=== PATIENT | male | born 1935 | race Caucasian/White ===

== ENCOUNTER 2019-05-02 13:25 | Outpatient (CLI) | payer MEDICARE, BC, SELFPAY ==
[2019-05-02 14:09] LABS: Blood Urea Nitrogen 30 mg/dL (9-20); Calcium 8.8 mg/dL (8.4-10.2); Carbon Dioxide 25 mmol/L (22-30); Chloride 98 mmol/L (98-107); Estimated Glomerular Filt Rate 41; Glucose 143 mg/dL (75-110); Sodium 137 mmol/L (137-145)
== END 2019-05-02 13:26 | disposition home or self-care (01) ==
PROVIDERS: Anesthesiology; PCP Internal Medicine; Visit Provider Plastic Surgery
DX: I10 Essential (primary) hypertension (principal)
CPT/HCPCS: 36415; 80048

== ENCOUNTER 2019-05-08 02:07 | Day surgery (SDC) | payer MEDICARE, BC, SELFPAY ==
[2019-04-24 10:41] VITALS: BMI 38.5
--- NOTE | 2019-05-07 21:11 | HP_ITS ---
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 The lesion on the lower portion of the antihelix is approximately 14 mm in diameter. The lesion on the helix is approximately 20 x 7 mm, both are scabbed or ulcerated. We discussed these and we will plan to remove them under MAC anesthetic. He is aware that full-thickness skin graft may be necessary to close these wounds. We will also be utilizing frozen section for refinement of our diagnosis. He will remain on his clopidogrel. He has a history of multiple skin cancers removed over the years. ALLERGIES: HE HAS NO KNOWN ALLERGIES TO MEDICATIONS. MEDICATIONS: Current medication list includes: 1. Hydrochlorothiazide. 2. Atorvastatin. 3. Clopidogrel. 4. Diclofenac. 5. Dutasteride. 6. Folic acid. 7. Furosemide. 8. Gabapentin. 9. Irbesartan. 10. Lansoprazole. 11. Metoprolol. 12. Tamsulosin. OTHER SURGERIES: History of cholecystectomy in , defibrillator was placed in 2004 and heart surgery in 2008. He has had ear surgery in the 60s and foot surgery in . Regarding specialist seen, he is followed by a cardiac surgeon, a lung specialist, urologist and orthopedic surgeon. REVIEW OF SYSTEMS: Indicates he is a nonsmoker. He is a borderline diabetic with gastric reflux. He has a defibrillator, hearing loss, hypertension, and a cardiac history. FAMILY HISTORY: Noncontributory. SOCIAL HISTORY: He lives in [place]. He has worked at [employer]. PHYSICAL EXAMINATION: GENERAL: He is in a wheelchair for the office visit, but is ambulatory as needed. He is alert and cooperative and informative. VITAL SIGNS: He is 5 feet 10 inches, 268 pounds. HEENT: Reveals the 2 lesions on the right ear, one on the rim and other on the antihelix. There is no palpable adenopathy. CHEST: Clear to auscultation. HEART: Regular rate and rhythm by palpation. ABDOMEN: Soft, nontender. EXTREMITIES: Normal. His wheelchair is needed for balance rather than leg symptoms. 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 PLAN: Excision of both under frozen section controlled with MAC anesthesia, possible full-thickness skin graft. D I MT: [facility]
--- NOTE | 2019-05-08 07:17 | WPDHPUPDATE1 ---
History and Physical Update Update Date/Time: 05/08/19 07:17 History and Physical has been reviewed, including an updated exam of the patient. There are NO changes in the patient's condition. Risks, benefits, and alternatives have been discussed and questions answered. Patient agrees to proceed with procedure.
--- NOTE | 2019-05-08 09:03 | P.PNAN_ITS ---
Anes - Initial Pre Proc Eval Procedure: Operation Date: 05/08/19 11:30 Proposed Procedures p Excision Ulcerated Neoplasm Right [place] With Frozen Section, Excision Ulcerated Neoplasm Right Antihelix With Frozen Section, Possible Full Thickness Skin Graft Both Sites - Zbigniew Tello MD Date/Time: 05/08/19 09:03 Surgeon: Zbigniew Tello MD Pre Op Diagnosis: Ulcerated Neoplasm Right [place] & Anti [place] Patient Data Age: 83 Gender: M Height: 1.78 m Weight: 121.6 kg Allergies Allergy/AdvReac Type Severity Reaction Status Date / Time No Known Allergies Allergy Verified 04/24/19 10:10 Home Medications Medication Instructions Recorded Confirmed Type amiloride-hydrochlorothiazide 1 tablet PO DAILY 04/24/19 04/24/19 History atorvastatin 40 mg PO DAILY 04/24/19 04/24/19 History clopidogrel 75 mg PO DAILY 04/24/19 04/24/19 History diclofenac sodium 75 mg PO BID 04/24/19 04/24/19 History docusate sodium [Stool Softener] 100 mg PO DAILY 04/24/19 04/24/19 History dutasteride 0.5 mg PO DAILY 04/24/19 04/24/19 History folic acid 0.4 mg PO DAILY 04/24/19 04/24/19 History furosemide 40 mg PO DAILY 04/24/19 04/24/19 History gabapentin 100 mg PO TID 04/24/19 04/24/19 History irbesartan 150 mg PO DAILY 04/24/19 04/24/19 History lansoprazole 30 mg PO DAILY 04/24/19 04/24/19 History metoprolol succinate 75 mg PO DAILY 04/24/19 04/24/19 History tamsulosin 0.4 mg PO HS 04/24/19 04/24/19 History tiotropium-olodaterol [Stiolto 1 puff INHALATION BID 04/24/19 04/24/19 History Respimat] Patient hx anesthesia problems: none Family hx anesthesia problems: none PMFSH Past Medical History Medical History (Updated 05/08/19 @ 09:10 by Smith Galdamez MD) Arthritis Asthma BPH (benign prostatic hyperplasia) CAD (coronary artery disease) DR CHUNG EVERY 3-4 MONTHS.LAST SEEN MAR 2019 Cancer [facility] CHF (congestive heart failure) HTN (hypertension) Hx of myocardial infarction X 3 Hypercholesterolemia Obesity MADAN (obstructive sleep apnea) USES CPAP Surgical History Surgical History (Updated 05/08/19 @ 09:09 by Smith Galdamez MD) History of automatic internal cardiac defibrillator (AICD) 2004 Hx of coronary artery bypass graft 2009 3 VESSELS Anes - Eval Final PreProcedure Day of Procedure 05/08/19 09:03 Patient weight: obese Heart: regular rate and rhythm Lungs: clear to auscultation and normal air movement Airway: Mallampati scale class II Neurological: alert and oriented Last oral intake: >/= 8 hours ASA classification: IV Emergent: no Anesthetic plan: proceed Anesthesia type and monitoring: general GIVS Informed Consent: The patient's anesthetic plan and its attendant risks and benefits were discussed with the patient/family/POA. Questions were solicited and answers provided to the satisfaction of the patient/family/POA.
[2019-05-08 09:51] VITALS: BP 156/65; PULSE 64; RESP 20; TEMP 36.6; O2SAT 90
[2019-05-08] MEDS: LACTATED RINGERS 1,000 ML 30 ML IV CONT (10:35)
--- NOTE | 2019-05-08 11:49 | SUR.PREOP ---
per Dr Tello-yanira for patient to wear left boot to OR
--- NOTE | 2019-05-08 12:30 | SUR.OPER ---
Specimen 1 given to Marlin in Lab. Specimen 2 given to Teresita in lab.
--- NOTE | 2019-05-08 13:16 | P.OPB_ITS ---
Procedure Note - Brief Procedure Note - Brief Date of procedure: 05/08/19 Pre-op diagnosis: Ulcerated Neoplasm Right [place] & Anti [place] Post-op diagnosis: other (Ulcerated inflammed neoplasm of right antihelix. 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 1.5 cm excision of ulcerated inflammed neoplasm of right antihelix with FS and complex repair 2.0 cm. Anesthesia: MAC Surgeon: Zbigniew Tello MD Head Of Precision Targeting: Adina ZUÑIGA student Estimated blood loss (mL): 10 Drains: No Packing: No Pathology: yes (12, 3-4, 8 margins sent for permanent.) Complications: No immediate complications Condition: stable Disposition: same day
[2019-05-08] MEDS: BACITRACIN OINTMENT 15 GM TUBE 1 APPLIC TOPICAL (13:19)
[2019-05-08 13:43] VITALS: BP 128/65; PULSE 66; RESP 14
--- NOTE | 2019-05-08 14:00 | PM.PROC ---
Procedure Note - Detailed Date of procedure: 05/08/19 Pre-op diagnosis: Ulcerated Neoplasm Right [place] & Anti [place] Post-op diagnosis: other (Ulcerated mass of the right antihelix. 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 He was taken to the operating room and placed supine on the operative table. His head was elevated. He was given IV sedation. The right side of his head and neck were prepped and draped in usual fashion. Careful inspection of these areas on the ear were marked for planned excision. These areas on the helix and antihelix were infiltrated with 1% lidocaine with epinephrine. The lesion from the antihelix was carefully examined and there was a 3 mm scab that covered an opening into this mass and the surrounding tissue was somewhat pearlescent resembling a basal cell carcinoma. The area on the antihelix was a long area of roughened skin and small scabs. This entire area was marked for excision. Our incision line on this crossed a small red 3 mm granulating area on the anterior area. We name this 12:00 for our suture marking and did not take it with the initial excision. The lesion from the antihelix was taken off first as a circular ellipse down to the perichondrium the mass was taken off of the cartilage. Did not seem to involve the perichondrium over the cartilage. The suture was placed at the superior aspect and sent for frozen section. The pathologist did not reveal the presence of any malignancy. The 2nd specimen was taken off as a long ellipse along the rim of the ear. A suture was placed at the most anterior aspect in the middle of the length of this mass for 12:00 o'clock. A two tail suture was placed at the most superior aspect for the 9:00 o'clock reference. The specimen was sent to pathology. The pathologist reported that the 3-4, the 8 and 12 o'clock sites were positive for squamous cell carcinoma. Except for the 12:00 o'clock, all these areas appeared to be normal skin clinically. We undertook 3 additional skin excisions and the 12:00 o'clock was a 1 x 2 cm wedge that included cartilage anticipating a wedge type closure repair. That specimen easily encompass the entire red granulated area and was sent for permanent section. A 3 mm wide section of skin was taken from the 3-4 o'clock margin with ample extra length. Suture marked the new 3:00 o'clock margin and that was sent for permanent section. A 3 mm wide resection from the 8:00 o'clock region was also taken and the new suture marking the new 8:00 o'clock point. This specimen also was sent for permanent section Closure of the nodular resection site involved resection of cartilage of the antihelix and also undermining of skin. Closure of the rim excision required wide undermining equaling the with of the wound as well as vicryl perichondral sutures to close the wedge. 5-0 Nylon closed the skin. He was discharged with instructions on care and follow-up and a prescription for tramadol 50 mg 8. Surgeon: Zbigniew Tlelo MD
[2019-05-08 14:10] VITALS: BP 121/60; PULSE 67
[2019-05-08 14:40] VITALS: BP 147/71; PULSE 70
== END 2019-05-08 15:00 | disposition home or self-care (01) ==
PROVIDERS: PCP Internal Medicine; Visit Provider Plastic Surgery
PROC: (CPT 11646; principal; 2019-05-08 11:30)
DX: C44.222 Squamous cell carcinoma of skin of right ear and external auricular canal (principal); L98.499 Non-pressure chronic ulcer of skin of other sites with unspecified severity; I11.0 Hypertensive heart disease with heart failure; I50.9 Heart failure, unspecified; I25.10 Atherosclerotic heart disease of native coronary artery without angina pectoris; E78.00 Pure hypercholesterolemia, unspecified; J45.909 Unspecified asthma, uncomplicated; I25.2 Old myocardial infarction; G47.33 Obstructive sleep apnea (adult) (pediatric); N40.0 Benign prostatic hyperplasia without lower urinary tract symptoms; M19.90 Unspecified osteoarthritis, unspecified site; E66.01 Morbid (severe) obesity due to excess calories; Z68.41 Body mass index [BMI] 40.0-44.9, adult; Z79.02 Long term (current) use of antithrombotics/antiplatelets; Z95.810 Presence of automatic (implantable) cardiac defibrillator; Z95.1 Presence of aortocoronary bypass graft
CPT/HCPCS: 11646; 13152; 13153; 11443; 88305; 88331; 88332; A9270; J1100; J2405; J2704; J3010; J7120

== ENCOUNTER 2019-09-23 09:58 | Inpatient (IN) | payer MEDICARE, BC, SELFPAY ==
[2019-09-23] VITALS (15 sets, daily range): BP systolic 104–134; BP diastolic 52–74; PULSE 60–105; RESP 18–24; TEMP 36–36.7; O2SAT 91–100
--- NOTE | ~2019-09-23 | XR_ITS ---
EXAMINATION: XR chest port-a-cath/central INDICATION: Central line placement TECHNIQUE: Portable AP chest at 1154 hours COMPARISON: None available FINDINGS: A right internal jugular central venous catheter ends with its tip at the distal superior v yeni cava. There are diffuse interstitial and airspace opacities of the lungs. Cardiomegaly is noted. No pleural effusion or pneumothorax is identified. A dual-lead cardiac pacemaker of the left chest wa ll ends with leads in expected locations. Median sternotomy wires and mediastinal surgical clips are seen, likely from prior coronary artery bypass grafting. IMPRESSION: 1. Right internal jugular central venous catheter ending in the distal superior vena cava. No pneumot horax. 2. Diffuse lung disease, consistent with pneumonia and/or pulmonary edema and/or acute respiratory di stress syndrome (ARDS). Reviewed, dictated and finalized at location A. IMPRESSION: 1. Right internal jugular central venous catheter ending in the distal superior vena cava. No pneumothorax. 2. Diffuse lung disease, consistent with pneumonia and/or pulmonary edema and/o r acute respiratory distress syndrome (ARDS).
--- NOTE | ~2019-09-23 | XR_ITS ---
EXAMINATION: XR hand RT min 3V EXAM DATE: 09/23/2019 10:55 INDICATION: Initial encounter following injury, with pain of the right hand. TECHNIQUE: Right hand frontal, lateral and oblique projections obtained and reviewed. There is no pr ior study for comparison. FINDINGS: Right metacarpal bones are unremarkable. 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 Otherwise mild to moderate scattered polyarticular osteoarthritis. 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 There are no acute fractures or dislocations identifi ed. There is no subcutaneous gas. There are no radiopaque foreign bodies. IMPRESSION: 1. XR hand RT min 3V exam without acute osseous findings. 2. Polyarticular osteoarthritis. Reviewed, dictated and finalized at location A.
--- NOTE | 2019-09-23 10:24 | PC.NURSE ---
PT HAS OBVIOUS RED BLOOD ON RECTUM, PA JORDAN AT BEDSIDE TO VISIBLY ASSESS.
--- NOTE | 2019-09-23 10:30 | ED.GIBLEED ---
HPI - GI Bleed General Chief complaint: GI Bleed <Osbaldo Vanegas PA-C - Last Filed: 09/23/19 19:38> Stated complaint: GI Bleed <Osbaldo Vanegas PA-C - Last Filed: 09/23/19 19:38> Time Seen by Provider: 09/23/19 10:00 <Osbaldo Vanegas PA-C - Last Filed: 09/23/19 19:38> Source: patient and family <URSULA Tellez Last Filed: 09/23/19 19:38> Mode of arrival: EMS <URSULA Tellez Last Filed: 09/23/19 19:38> Limitations: no limitations <URSULA Tellez Last Filed: 09/23/19 19:38> History of Present Illness HPI Narrative: Patient with history of past [place], CHF, hypertension, MADAN, cancer, BPH obesity, hyperlipidemia, arthritis, asthma, oxygen need, unstable left ankle, history of presents with chief complaint of GI bleeding that began yesterday. Patient states that he was discharged from [facility] yesterday after being admitted on Sunday for shaking episodes. Patient also reports falling on Sunday and hitting his head and right hand. Patient states on Sunday after presenting to [facility] he did have CT imaging of his head, but did not have imaging of his right hand. Patient states that he was given 3 aspirins in addition to his Plavix prior to discharge from [facility] yesterday and he believes that is the cause of his rectal bleeding. Patient states that the blood is bright red and when he woke up this morning it was all over the bed. Patient denies weakness from his baseline or shortness of breath greater than his baseline. He denies any chest pain, dizziness, nausea, vomiting. He reports having an episode of abdominal pain while sitting on the toilet yesterday but denies any acute abdominal pain at this time. Patient denies having a history of GI bleeding. Patient states the past week he has gone to the bathroom every other day instead of every day but otherwise has noted normal bowel movements and denies them being excessively hard.patient denies any vomiting, fever, cough. Patient states that he has a boot on his left leg but he cannot under any circumstances be removed due to it being unstable. Patient states that his shaking episodes are now by his primary care provider Dr. De Luna as well as his territory sales manager. <Osbaldo Vanegas PA-C - Last Filed: 09/23/19 19:38> Related Data Home medications: Home Medications Medication Instructions Recorded Confirmed atorvastatin 40 mg PO DAILY 04/24/19 09/23/19 clopidogrel 75 mg PO DAILY 04/24/19 09/23/19 diclofenac sodium 75 mg PO BID 04/24/19 09/23/19 docusate sodium [Stool Softener] 100 mg PO DAILY 04/24/19 09/23/19 dutasteride 0.5 mg PO DAILY 04/24/19 09/23/19 folic acid 0.4 mg PO DAILY 04/24/19 09/23/19 gabapentin 100 mg PO TID 04/24/19 09/23/19 irbesartan 150 mg PO DAILY 04/24/19 09/23/19 lansoprazole 30 mg PO DAILY 04/24/19 09/23/19 metoprolol succinate 25 mg PO DAILY 04/24/19 09/23/19 tamsulosin 0.4 mg PO HS 04/24/19 09/23/19 furosemide 80 mg PO DAILY 09/23/19 09/23/19 <Osbaldo Vanegas PA-C - Last Filed: 09/23/19 19:38> Allergies/Adverse reactions: Allergies Allergy/AdvReac Type Severity Reaction Status Date / Time No Known Allergies Allergy Verified 09/23/19 10:09 <Osbaldo Vanegas PA-C - Last Filed: 09/23/19 19:38> Review of Systems Review of Systems: Narrative: CONSTITUTIONAL: Denies fever, chills, or sweats. EYES: Denies visual changes, redness, or discharge. ENT: Denies rhinorrhea, congestion, sore throat, or otalgia. CARDIOVASCULAR: Denies chest pain, palpitations, or edema. RESPIRATORY: Denies cough or acute dyspnea. GASTROINTESTINAL: Reports rectal bleeding denies acute abdominal pain, nausea, vomiting, or diarrhea. GENITOURINARY: Denies dysuria or hematuria. SKIN: Denies rash or itching. MUSCULOSKELETAL: Reports tenderness to the base of the right fifth digit denies acute back pain or myalgia. NEUROLOGIC: Denies headache, numbness, dizziness, or weakness. PSYCHIATRIC: Denies anxie
[2019-09-23 10:55] LABS: Basophils Percent Auto 0.2 % (0.2-1.2); Eosinophils Percent Auto 0.2 % (0-4.4); Hematocrit 24.7 % (42.0-52.0); Hemoglobin 7.7 g/dL (14.0-18.0); Immature Granulocyte Absolute 0.05 K/mm3 (0.00-0.031); Immature Granulocyte Percent A 0.6 % (0-0.5); Lymphocytes Absolute Auto 0.66 K/mm3 (0.9-3.2); Lymphocytes Percent Auto 7.4 % (18.3-44.2); Mean Corpuscular HGB Conc 31.2 g/dl (32-36); Mean Corpuscular Hemoglobin 32.4 pg (26-34); Mean Corpuscular Volume 103.8 fl (80-100); Monocytes Absolute Auto 0.5 K/mm3 (0.1-0.6); Monocytes Percent Auto 5.8 % (2.6-8.5); Neutrophils Absolute Auto 7.7 K/mm3 (1.3-6.7); Neutrophils Percent Auto 85.8 % (45.5-73.1); Platelet Count Result 248 k/mm3 (150-375); Red Blood Count 2.38 M/mm3 (4.6-6.20); Red Cell Distribution Width 14.6 % (11.5-14.5)
[2019-09-23 11:03] LABS: INR 1.3; Prothrombin Time 15.8 Seconds (11.1-14.7)
[2019-09-23 11:04] LABS: Partial Thromboplastin Time 25.6 SECONDS (22.3-36.8)
--- NOTE | 2019-09-23 11:04 | PC.NURSE ---
MEDICAL RECORDS REQUEST SENT BY [facility].
[2019-09-23 11:08] LABS: Alanine Aminotransferase 12 U/L (4-50); Albumin Level 3.2 g/dL (3.5-5.1); Alkaline Phosphatase 120 U/L (38-126); Aspartate Amino Transferase 20 U/L (17-59); Bilirubin,Total 0.9 mg/dL (0.2-1.3); Blood Urea Nitrogen 27 mg/dL (9-20); Calcium 7.9 mg/dL (8.4-10.2); Carbon Dioxide 31 mmol/L (22-30); Chloride 99 mmol/L (98-107); Estimated CRCL calculation 60 ml/min; Estimated Glomerular Filt Rate > 60; Glucose 142 mg/dL (75-110); Potassium 3.2 mmol/L (3.4-5.0); Sodium 139 mmol/L (137-145)
--- NOTE | 2019-09-23 11:10 | PC.NURSE ---
BEDSIDE REPORT GIVEN TO [facility] AT THIS TIME, SHE HAS ASSUMED PT CARE.
[2019-09-23] MEDS: PANTOPRAZOLE SODIUM IV 40 MG VIAL IV PUSH (11:23)
--- NOTE | 2019-09-23 13:02 | PC.NURSE ---
This patient, Jagjit Rivera, was admitted to [facility] Surg Room 315-01 on 09/23/2019 @ 1302. Patient/family oriented to hospital policies and general routines including ID bracelet, bed and alarms, visiting hours, pain management, procedures, bathroom and other care routines, personal items, smoking policy, room service/diet, and visiting hours. Valuables list has been completed. Information on how to activate the Rapid Response Team has been discussed. Patient/Family are encouraged to report perceived risks to care and to ask questions if they do not understand what they are told or what they should do.
--- NOTE | 2019-09-23 13:28 | WPDGICN ---
Assessment and Plan Assessment and plan (1) GI bleeding: Code(s): K92.2 - Gastrointestinal hemorrhage, unspecified Status: Acute Assessment and Plan: Patient has GI bleeding that began last evening. Described as rather large amount of melanotic admixed with blood and cloudy stools. Patient has a low hemoglobin consistent with blood loss anemia. Is difficult to know the etiology of this bleeding. It could be upper or lower in the etiology. Plan is to monitor hemoglobin closely and transfuse as necessary. GI endoscopy will be planned in the morning to include both colonoscopy an EGD. Patient will be maintained on Protonix for the possibility of peptic ulcer disease in the interim period anticoagulation with Plavix should be held until this is accomplished. (2) Squamous cell cancer of lip: Code(s): C44.02 - Squamous cell carcinoma of skin of lip Status: Acute (3) Obesity: Code(s): E66.9 - Obesity, unspecified Status: Acute (4) CAD (coronary artery disease): Code(s): I25.10 - Atherosclerotic heart disease of [place] coronary artery without angina pectoris Status: Acute (5) Hx of coronary artery bypass graft: Code(s): Z95.1 - Presence of aortocoronary bypass graft Status: Acute (6) History of automatic internal cardiac defibrillator (AICD): Code(s): Z95.810 - Presence of automatic (implantable) cardiac defibrillator Status: Acute GI Consult Note Consult date/time: 09/23/19 13:28 HPI: Jagjit Rivera is a 83 year old male seen in evaluation at the request of the ER because of gi bleeding. this patient has a history of atherosclerotic heart disease. He has a distant history of a myocardial infarction, congestive heart failure, defibrillator implanted. He has been treated for squamous cell carcinoma of the lip. Obesity. BPH. Hyperlipidemia. Arthritis. He has a poorly healing fracture of the left foot for which she always wears a boot. He was in usual state of health till yesterday when he began to pass black stools but also blood study stools admixed with stool and clots. This persisted throughout the evening. Prompting him to go to the emergency room this morning. He was found to have a low hemoglobin was admitted to the hospital. Patient denies abdominal pain. His appetite has been normal. At home he takes Plavix and aspirin on a routine basis. Patient denies any prior history of GI blood loss. He does report having had a perforated ulcer requiring surgery 5 years ago. Review of Systems Review of Systems: All systems reviewed & are unremarkable except as noted in HPI and below PMFSH Past Medical History Medical History Arthritis Asthma BPH (benign prostatic hyperplasia) CAD (coronary artery disease) DR CHUNG EVERY 3-4 MONTHS.LAST SEEN MAR 2019 Cancer [facility] CHF (congestive heart failure) HTN (hypertension) Hx of myocardial infarction X 3 Hypercholesterolemia Obesity MADAN (obstructive sleep apnea) USES CPAP Surgical History Surgical History History of automatic internal cardiac defibrillator (AICD) 2004 Hx of coronary artery bypass graft 2008 3 VESSELS Meds Home Medications and Allergies Home Medications Medication Instructions Recorded Confirmed Type atorvastatin 40 mg PO DAILY 04/24/19 04/24/19 History clopidogrel 75 mg PO DAILY 04/24/19 04/24/19 History diclofenac sodium 75 mg PO BID 04/24/19 05/08/19 History docusate sodium [Stool Softener] 100 mg PO DAILY 04/24/19 05/08/19 History dutasteride 0.5 mg PO DAILY 04/24/19 05/08/19 History folic acid 0.4 mg PO DAILY 04/24/19 05/08/19 History furosemide 40 mg PO DAILY 04/24/19 05/08/19 History gabapentin 100 mg PO TID 04/24/19 05/08/19 History irbesartan 150 mg PO DAILY 04/24/19 05/08/19 History lansoprazole 30 mg PO DAILY 04/24/19 05/08/19 History metopr
[2019-09-23] MEDS: PEG (High)/E-LYTE SOLN 4,000 ML BTL 4000 ML PO (16:11)
--- NOTE | 2019-09-23 17:20 | PM.IMHP ---
H&P: HPI History of Present Illness Chief complaint: GI Bleeding Narrative: Jagjit Rivera is a 83 year old male Who was admitted on 09/21/2019 to [facility] the patient was having a shaking episode and was unresponsive became very quickly. The patient had a slight bump in his troponins x3 at [facility] and it was felt that it was due to his acute kidney injury. Patient had no complaints of chest pain and was released to home last night. He then started to have bright red bloody stools. The stated he had at least 3 large bloody stools last night. Again today he had multiple bloody stools and in the emergency room she stated he had a bloody stools well. The patient appears to be pale. He is very weak. He has no fever or chills. No nausea vomiting. . GI has been consulted and has already seen the patient. Plan for EGD and colonoscopy for tomorrow. The patient is on Plavix and aspirin. The patient fell on Sunday and hit his head and his right hand and then Sundays when he went to [facility]. He did have CT imaging of his head but not of his right hand. The patient stated he was given [address] [facility] De Luna is his construction management instructor. Records were obtained from [facility] and are placed on the chart. H&H 7.7 and 24.7. His hemoglobin was noted to be 11.6 with hematocrit 37.3 at [facility] 2 days ago. The patient is hypoxic and is on oxygen at 2 L per nasal cannula. Patient was started on a Protonix drip. He was started on preparation for colonoscopy tomorrow. Date of service 09/23/2019 Review of Systems Review of Systems: Narrative: the patient feels very fatigued and his is answering questions for him. All systems reviewed & are unremarkable except as noted in HPI and below Constitutional: Constitutional: Reports as per HPI and Reports no additional constitutional complaints Eyes: Eyes: Reports as per HPI and Reports no additional eye complaints ENT: Reports system reviewed and no additional complaints, except as documented and Reports Normal hearing present Cardiovascular: Cardiovascular: Reports no additional cardiovascular complaints Respiratory: Respiratory: Reports no additional respiratory complaints and Reports no additional respiratory complaints Gastrointestinal: Gastrointestinal: Reports as per HPI and Reports no additional gastrointestinal complaints Musculoskeletal: Musculoskeletal: Reports no additional musculoskeletal complaints Integumentary/Breasts: Skin/Breast: Reports system reviewed and no additional complaints, except as docu and Reports as per HPI Neurologic: Reports system reviewed and no additional complaints, except as documented, Reports as per HPI and Reports Normal hearing present Psychiatric: Psychiatric: Reports no additional psychiatric complaints and Reports as per HPI Endocrine: Endocrine: Reports no additional endocrine complaints Hematologic/Lymphatic: Hematologic/Lymphatic: Reports no additional hematologic/lymphatic complaints Allergic/Immunologic: Allergic/Immunologic: Reports no additional allergic/immunologic complaints [facility] Past Medical History Medical History (Updated 09/23/19 @ 17:27 by Esperanza Patel NP) Arthritis Asthma BPH (benign prostatic hyperplasia) CAD (coronary artery disease) DR CHUNG EVERY 3-4 MONTHS.LAST SEEN MAR 2019 Cancer [facility] CHF (congestive heart failure) Chronic anemia Chronic GERD HTN (hypertension) Hx of myocardial infarction X 3 Hypercholesterolemia Obesity MADAN (obstructive sleep apnea) USES CPAP Surgical History Surgical History (Updated 09/23/19 @ 17:27 by Esperanza Patel NP) H/O mastoidectomy H/O right knee surgery History of automatic internal cardiac defibrillator (AICD) 2004 History of colon resection Hx of cholecystectomy Hx of coronary artery bypass graft 2009 3 VESSELS Family History Family History (Updated 09/23/19 @ 17:28 by Esperanaz Patel NP) Fath
--- NOTE | 2019-09-23 18:01 | WPDANESEPP ---
Anes - Eval Pre Procedure Procedure: Operation Date: 09/24/19 11:30 Proposed Procedures p Esophagogastroduodenoscopy & Colonoscopy - Bayron Gutierrez MD Date/Time: 09/23/19 18:01 Pre Op Diagnosis: GI Bleeding Patient Data Age: 83 Gender: M Height: 5 ft 10 in Weight: 130.8 kg Last Vital Signs Temp 98.1 F 09/23/19 14:00 Pulse 87 09/23/19 14:00 Resp 18 09/23/19 14:00 BP 123/53 L 09/23/19 14:00 Pulse Ox 100 09/23/19 14:00 Allergies Allergy/AdvReac Type Severity Reaction Status Date / Time No Known Allergies Allergy Verified 09/23/19 10:09 Home Medications Medication Instructions Recorded Confirmed Type atorvastatin 40 mg PO DAILY 04/24/19 09/23/19 History clopidogrel 75 mg PO DAILY 04/24/19 09/23/19 History diclofenac sodium 75 mg PO BID 04/24/19 09/23/19 History docusate sodium [Stool Softener] 100 mg PO DAILY 04/24/19 09/23/19 History dutasteride 0.5 mg PO DAILY 04/24/19 09/23/19 History folic acid 0.4 mg PO DAILY 04/24/19 09/23/19 History gabapentin 100 mg PO TID 04/24/19 09/23/19 History irbesartan 150 mg PO DAILY 04/24/19 09/23/19 History lansoprazole 30 mg PO DAILY 04/24/19 09/23/19 History metoprolol succinate 25 mg PO DAILY 04/24/19 09/23/19 History tamsulosin 0.4 mg PO HS 04/24/19 09/23/19 History furosemide 80 mg PO DAILY 09/23/19 09/23/19 History Laboratory Tests 09/23/19 09/23/19 09/23/19 10:39 10:39 10:39 WBC 9.0 K/mm3 K/mm3 (4.5-10.0) RBC 2.38 M/mm3 L M/mm3 (4.6-6.20) Hgb 7.7 g/dL L g/dL (14.0-18.0) Hct 24.7 % L % (42.0-52.0) MCV 103.8 fl H fl (80-100) MCH 32.4 pg pg (26-34) MCHC 31.2 g/dl L g/dl (32-36) RDW 14.6 % H % (11.5-14.5) Plt Count 248 k/mm3 k/mm3 (150-375) MPV 11.0 fl H fl (7.4-10.4) Immature Gran % (Auto) 0.6 % H % (0-0.5) Neut % (Auto) 85.8 % H % (45.5-73.1) Lymph % (Auto) 7.4 % L % (18.3-44.2) [place] % (Auto) 5.8 % % (2.6-8.5) Eos % (Auto) 0.2 % % (0-4.4) Baso % (Auto) 0.2 % % (0.2-1.2) Lymph # (Auto) 0.66 K/mm3 L K/mm3 (0.9-3.2) [place] # (Auto) 0.5 K/mm3 K/mm3 (0.1-0.6) Eos # (Auto) 0.0 K/mm3 K/mm3 (0-0.3) Baso # (Auto) 0.0 K/mm3 K/mm3 (0.0-0.1) Abs Immat Gran (auto) 0.05 K/mm3 H K/mm3 (0.00-0.031) Absolute Neuts (auto) 7.7 K/mm3 H K/mm3 (1.3-6.7) Absolute Nucleated RBC 0.0 K/mm3 K/mm3 (0.0-0.012) Nucleated RBC % 0.0 % % (0.0-0.2) PT 15.8 Seconds H Seconds (11.1-14.7) INR 1.3 APTT 25.6 SECONDS SECONDS (22.3-36.8) Sodium 139 mmol/L mmol/L (137-145) Potassium 3.2 mmol/L L mmol/L (3.4-5.0) Chloride 99 mmol/L mmol/L (98-107) Carbon Dioxide 31 mmol/L H mmol/L (22-30) BUN 27 mg/dL H mg/dL (9-20) Creatinine 1.10 mg/dL mg/dL (0.7-1.3) Estim Creat Clear Calc 60 ml/min ml/min Estimated GFR > 60 (59 - ) Glucose 142 mg/dL H mg/dL (75-110) Calcium 7.9 mg/dL L mg/dL (8.4-10.2) Total Bilirubin 0.9 mg/dL mg/dL (0.2-1.3) AST 20 U/L U/L (17-59) ALT 12 U/L U/L (4-50) Alkaline Phosphatase 120 U/L U/L (38-126) Total Protein 6.0 g/dL L g/dL (6.3-8.2) Albumin 3.2 g/dL L g/dL (3.5-5.1) Blood Type Antibody Screen Crossmatch 09/23/19 10:39 WBC RBC Hgb Hct MCV MCH MCHC RDW Plt Count MPV Immature Gran % (Auto) Neut % (Auto) Lymph % (Auto) [place] % (Auto) Eos % (Auto) Baso % (Auto) Lymph # (Auto) [place] # (Auto) Eos # (Auto) Baso # (Auto) Abs Immat Gran (auto) Absolute Neuts (auto) Absolute Nucleated RB
--- NOTE | 2019-09-23 19:14 | ECG_ITS ---
Measurements Intervals [place] Rate: 98 P: -3 AL: 170 QRS: -23 QRSD: 123 T: 171 QT: 361 QTc: 462 Interpretive Statements SINUS OR ECTOPIC ATRIAL RHYTHM INTRAVENTRICULAR CONDUCTION DELAY POOR R WAVE PROGRESSION, ANTERIOR LEADS INFERIOR INFARCT, AGE INDETERMINATE ST-T WAVE ABNORMALITY IN HIGH LATERAL LEADS- CONSIDER ISCHEMIA ABNORMAL ECG Electronically Signed On 09-24-2019 7:29:33 CDT by Karlo Butterfield D.O.
[2019-09-23] MEDS: GABAPENTIN 100 MG CAPSULE PO (21:13)
[2019-09-23] MEDS: TAMSULOSIN HCL 0.4 MG CAPSULE PO (21:13)
[2019-09-23 21:47] LABS: Glucose Point of Care 175 (65-105)
[2019-09-24] VITALS (26 sets, daily range): BP systolic 101–152; BP diastolic 10–98; PULSE 84–114; RESP 18–22; TEMP 35.1–36.9; O2SAT 92–100
--- NOTE | 2019-09-24 | WPDPROCEDUR ---
Procedures Central Line Placement Right IJ: Central Line Date: 09/23/19 Central Line Time: 23:00 Discussed w/ the patient/family/POA,the placement of a central venous catheter, including its clinical necessity/indication & associated potential risks, benifits and alternatives.: Yes Time Out Performed: Yes Patient Position: supine Patient placed on monitor/pulse ox: Yes Provider Prep: mask, sterile gown, sterile gloves, Max. sterile barrier precautions, cap and hand hygiene Central line prep: Povidone-Iodine 1% Local anesthesia used: lidocaine 1% Amount of anesthesia used (ml): 5 Sterile Ultrasound Technique used for placement: Yes Central line lumen inserted: triple Malaysian: 7 Length (cm): 20 Depth of Insertion (cm): 16 Post procedure: sutured in place, good blood return, all ports aspirated, flushed, capped, tegaderm, hemostatic disc and aseptic technique maintained throughout procedure Post procedure x-ray: tip of catheter in good position and no pneumothorax seen Patient tolerated procedure: well Complications: none Additional comments: Date of service was 09/23/2019 at 23:00 hrs.
--- NOTE | 2019-09-24 00:21 | PC.NURSE ---
Multiple IV access attempts unsuccessful. Esperanza MARTINEZ at bedside attempting IV access, unable to obtain.
[2019-09-24 07:08] LABS: Hematocrit 23.5 % (42.0-52.0); Hemoglobin 7.5 g/dL (14.0-18.0)
[2019-09-24 07:24] LABS: Alanine Aminotransferase 13 U/L (4-50); Albumin Level 3.3 g/dL (3.5-5.1); Alkaline Phosphatase 116 U/L (38-126); Aspartate Amino Transferase 34 U/L (17-59); Bilirubin,Total 1.1 mg/dL (0.2-1.3); Blood Urea Nitrogen 28 mg/dL (9-20); CRP 2.7 mg/dL (<1.0); Carbon Dioxide 28 mmol/L (22-30); Chloride 99 mmol/L (98-107); Estimated CRCL calculation 60 ml/min; Estimated Glomerular Filt Rate > 60; Glucose 174 mg/dL (75-110); Magnesium 1.7 mg/dL (1.6-2.3); Sodium 139 mmol/L (137-145)
[2019-09-24 08:21] LABS: Glucose Point of Care 195 (65-105)
--- NOTE | 2019-09-24 09:16 | WPDANESEPPF ---
Anes - Initial Pre Proc Eval Procedure: Operation Date: 09/24/19 11:30 Proposed Procedures p Esophagogastroduodenoscopy & Colonoscopy - Bayron Gutierrez MD Date/Time: 09/24/19 09:16 Surgeon: Wilbur Springer MD Pre Op Diagnosis: GI Bleeding Patient Data Age: 83 Gender: M Height: 1.78 m Weight: 130.8 kg Last Vital Signs Temp 36.9 C 09/24/19 06:00 Pulse 98 09/24/19 06:00 Resp 22 H 09/24/19 06:00 BP 152/87 H 09/24/19 06:00 Pulse Ox 100 09/24/19 06:00 Allergies Allergy/AdvReac Type Severity Reaction Status Date / Time No Known Allergies Allergy Verified 09/24/19 11:34 Home Medications Medication Instructions Recorded Confirmed Type atorvastatin 40 mg PO DAILY 04/24/19 09/23/19 History clopidogrel 75 mg PO DAILY 04/24/19 09/23/19 History diclofenac sodium 75 mg PO BID 04/24/19 09/23/19 History docusate sodium [Stool Softener] 100 mg PO DAILY 04/24/19 09/23/19 History dutasteride 0.5 mg PO DAILY 04/24/19 09/23/19 History folic acid 0.4 mg PO DAILY 04/24/19 09/23/19 History gabapentin 100 mg PO TID 04/24/19 09/23/19 History irbesartan 150 mg PO DAILY 04/24/19 09/23/19 History lansoprazole 30 mg PO DAILY 04/24/19 09/23/19 History metoprolol succinate 25 mg PO DAILY 04/24/19 09/23/19 History tamsulosin 0.4 mg PO HS 04/24/19 09/23/19 History furosemide 80 mg PO DAILY 09/23/19 09/23/19 History Laboratory Tests 09/23/19 09/23/19 09/23/19 10:39 10:39 10:39 WBC 9.0 K/mm3 K/mm3 (4.5-10.0) RBC 2.38 M/mm3 L M/mm3 (4.6-6.20) Hgb 7.7 g/dL L g/dL (14.0-18.0) Hct 24.7 % L % (42.0-52.0) MCV 103.8 fl H fl (80-100) MCH 32.4 pg pg (26-34) MCHC 31.2 g/dl L g/dl (32-36) RDW 14.6 % H % (11.5-14.5) Plt Count 248 k/mm3 k/mm3 (150-375) MPV 11.0 fl H fl (7.4-10.4) Immature Gran % (Auto) 0.6 % H % (0-0.5) Neut % (Auto) 85.8 % H % (45.5-73.1) Lymph % (Auto) 7.4 % L % (18.3-44.2) [place] % (Auto) 5.8 % % (2.6-8.5) Eos % (Auto) 0.2 % % (0-4.4) Baso % (Auto) 0.2 % % (0.2-1.2) Lymph # (Auto) 0.66 K/mm3 L K/mm3 (0.9-3.2) [place] # (Auto) 0.5 K/mm3 K/mm3 (0.1-0.6) Eos # (Auto) 0.0 K/mm3 K/mm3 (0-0.3) Baso # (Auto) 0.0 K/mm3 K/mm3 (0.0-0.1) Abs Immat Gran (auto) 0.05 K/mm3 H K/mm3 (0.00-0.031) Absolute Neuts (auto) 7.7 K/mm3 H K/mm3 (1.3-6.7) Absolute Nucleated RBC 0.0 K/mm3 K/mm3 (0.0-0.012) Nucleated RBC % 0.0 % % (0.0-0.2) PT 15.8 Seconds H Seconds (11.1-14.7) INR 1.3 APTT 25.6 SECONDS SECONDS (22.3-36.8) Sodium 139 mmol/L mmol/L (137-145) Potassium 3.2 mmol/L L mmol/L (3.4-5.0) Chloride 99 mmol/L mmol/L (98-107) Carbon Dioxide 31 mmol/L H mmol/L (22-30) BUN 27 mg/dL H mg/dL (9-20) Creatinine 1.10 mg/dL mg/dL (0.7-1.3) Estim Creat Clear Calc 60 ml/min ml/min Estimated GFR > 60 (59 - ) Glucose 142 mg/dL H mg/dL (75-110) POC Capillary Glucose Calcium 7.9 mg/dL L mg/dL (8.4-10.2) Magnesium Total Bilirubin 0.9 mg/dL mg/dL (0.2-1.3) AST 20 U/L U/L (17-59) ALT 12 U/L U/L (4-50) Alkaline Phosphatase 120 U/L U/L (38-126) C-Reactive Protein Total Protein 6.0 g/dL L g/dL (6.3-8.2) Albumin 3.2 g/dL L g/dL (3.5-5.1) TSH (Reflex) Blood Type Antibody Screen Crossmatch 09/23/19 09/23/19 09/24/19 10:39 21:18 07:00 WBC RBC Hgb 7.5 g/dL L g/dL (14.0-18.0) Hct 23.5 % L % (42.0-52.0) MCV MCH MCHC RDW Plt Count MPV Immature
--- NOTE | 2019-09-24 11:22 | PC.NURSE ---
To GI Lab per pilo, IV right central triple lumen. Report given to SPRING Chapman. PRBC currently infusing.
[2019-09-24] MEDS: LACTATED RINGERS 1,000 ML 150 ML IV CONT (11:40)
--- NOTE | 2019-09-24 14:38 | PC.NURSE ---
Returned from GI Lab. Report received from SPRING Mata.
[2019-09-24] MEDS: FOLIC ACID 0.4 MG TABLET PO (15:05)
[2019-09-24] MEDS: FUROSEMIDE 80 MG TABLET PO (15:05)
[2019-09-24] MEDS: CENTRAL LINE FLUSH 10 ML IV PUSH ×3 (15:05→21:47)
[2019-09-24] MEDS: GABAPENTIN 100 MG CAPSULE PO (15:05)
[2019-09-24] MEDS: DUTASTERIDE 0.5 MG CAPSULE PO (15:05)
[2019-09-24] MEDS: INSULIN ASPART (*BKC) 100 UNITS/ML SUB-Q (15:10)
[2019-09-24 15:14] LABS: Glucose Point of Care 215 (65-105)
[2019-09-24 16:11] LABS: Hematocrit 24.8 % (42.0-52.0)
--- NOTE | 2019-09-24 16:48 | PM.IMPN ---
Progress Note: A&P Assessment and Plan (1) Diverticular hemorrhage: Code(s): K57.31 - Diverticulosis of large intestine without perforation or abscess with bleeding Status: Acute Assessment and Plan: ----- GI bleed likely due to diverticular bleed as noted on colonoscopy. Patient has not had any blood per rectum since the colonoscopy. He is still having symptomatic anemia So I willtransfuse him 1 more unit of blood even though his hemoglobin is 8. Because of cardiovascular disease, a transfusion is indicated. Will continue to monitor his H&H and symptoms. (2) GI bleeding: Qualifiers: GI bleed type/associated pathology: unspecified gastrointestinal hemorrhage type Qualified Code(s): K92.2 - Gastrointestinal hemorrhage, unspecified Code(s): K92.2 - Gastrointestinal hemorrhage, unspecified Status: Acute Assessment and Plan: ----- see above (3) HTN (hypertension): Code(s): I10 - Essential (primary) hypertension Status: Acute Assessment and Plan: ----- blood pressure 126/77 but was soft earlier in the stay due to blood loss. I will continue Lasix but will hold the rest of his blood pressure medications at this time. (4) Hypercholesterolemia: Code(s): E78.00 - Pure hypercholesterolemia, unspecified Status: Acute Assessment and Plan: ----- Chronic, statin held. (5) CHF (congestive heart failure): Code(s): I50.9 - Heart failure, unspecified Status: Acute Assessment and Plan: ----- Seems a bit fluid overloaded with the says this is better than his baseline.continue with Lasix but on hold his metoprolol At this time due to soft blood pressures. (6) MADAN (obstructive sleep apnea): Code(s): G47.33 - Obstructive sleep apnea (adult) (pediatric) Status: Acute Assessment and Plan: ----- Continue with CPAP in the room (7) BPH (benign prostatic hyperplasia): Code(s): N40.0 - Benign prostatic hyperplasia without lower urinary tract symptoms Status: Acute Assessment and Plan: ------ Continue with tamsulosin and dutasteride . Time Spent With Patient Time with patient: 25 - 35 minutes Subjective Date/time seen: 09/24/19 16:48 Interval history: Pt is a 83-year-old here for diverticular bleed. Patient was seen today and states he was still having bloody bowel movements early this morning but has not had any since his colonoscopy. He still feels weak and run down and his states he looks more pale than his baseline. He states he is getting lightheaded and dizzy when he stands up. He usually uses 4 L Of oxygen with exertion but does not typically need oxygen at rest. He denies nausea, vomiting, fevers, chills or chest pain. He has some swelling in his lower extremities that his says is better than his normal. Review of Systems Review of Systems: All systems reviewed & are unremarkable except as noted in HPI and below Exam Narrative: Exam Narrative: General: overweight patient resting comfortably in bed in no acute distress HEENT: normocephalic Neck: supple Neuro: Alert and oriented CV:RRR Resp:CTA Abd: Soft, non distended. No pain to palpation. Positive bowel sounds Extremities: 1+ pitting edema to both lower extremities. Walking cast on the left leg Objective Data Vital Signs Vital Signs: Vital Signs - 24 hr 09/23/19 19:06 09/23/19 19:08 09/23/19 19:22 Temperature 97.6 F 96.9 F L 96.8 F L Pulse Rate 94 100 105 H Respiratory Rate 20 20 20 Blood Pressure 116/52 L 118/64 134/74 Pulse Oximetry 100 100 100 09/23/19 19:51 09/23/19 20:22 09/23/19 21:22 Temperature 96.9 F L 97.4 F L Pulse Rate 91 60 64 Respiratory Rate 18 20 20 Blood Pressure 126/67 130/72 Pulse Oximetry 99 100 99 09/23/19 23:50 09/24/19 01:23 09/24/19 01:38 Temperature 96.8 F L 96.8 F L Pulse Rate 89 106 H 106 H Respiratory Rat
[2019-09-24 18:51] LABS: Glucose Point of Care 179 (65-105)
[2019-09-24] MEDS: TAMSULOSIN HCL 0.4 MG CAPSULE PO (21:46)
[2019-09-24 23:20] LABS: Glucose Point of Care 173 (65-105)
[2019-09-25 03:06] VITALS: O2SAT 95
[2019-09-25 06:00] VITALS: BP 103/65; PULSE 100; RESP 20; TEMP 36.4; O2SAT 98
--- NOTE | 2019-09-25 06:42 | P.CDI_ITS ---
CDI Query Clarification Request - GI bleed, diverticular, has been documented - 09/22 H&H 7.7/24.7, 09/23 H&H 8.0/24.8 - 4 units of blood have been transfused - Dr Gutierrez documented, low hemoglobin with blood loss anemia - Symptomatic anemia documented Please further clarify type and acuity of anemia: * Acute blood loss anemia * Chronic blood loss anemia * Acute on Chronic blood loss anemia * Acute anemia of other cause * Chronic anemia of other cause * Unable to determine
--- NOTE | 2019-09-25 06:42 | WPDCDIQUERY2 ---
CDI Query Clarification Request - GI bleed, diverticular, has been documented - 09/22 H&H 7.7/24.7, 09/23 H&H 8.0/24.8 - 4 units of blood have been transfused - Dr Gutierrez documented, low hemoglobin with blood loss anemia - Symptomatic anemia documented Please further clarify type and acuity of anemia: Acute blood loss anemia Chronic blood loss anemia Acute on Chronic blood loss anemia Acute anemia of other cause Chronic anemia of other cause Unable to determine
[2019-09-25] MEDS: CENTRAL LINE FLUSH 10 ML IV PUSH ×2 (06:49→14:46)
--- NOTE | 2019-09-25 07:47 | WPDGIPROGNO ---
Progress Note: A&P Additional Plan Patient at baseline this morning. No additional bleeding reported. He remains very hard of hearing. He denies abdominal pain. Physical exam reveals patient to be alert. Vital signs are stable. HEENT exam reveals him to be anicteric. Lungs are clear. Heart without murmur. Abdomen is obese. Bowel sounds are present soft and nontender. Labs reveal hemoglobin 8.0, hematocrit 24.8. Impression 1. Lower GI bleeding. Now resolved. Appears to have been from diverticulosis. Internal hemorrhoids are also very noticeable. Plan is for high-fiber diet. Discharge as he is tolerating diet bleeding has abated. No additional GI workup planned at this time. Subjective Date/time seen: 09/25/19 07:47 Objective Data Vital Signs Vital Signs: Vital Signs - 24 hr 09/24/19 11:00 09/24/19 11:05 09/24/19 11:19 Temperature 97.3 F L 96.8 F L 98.3 F Pulse Rate 101 H 102 H 114 H Respiratory Rate 20 18 18 Blood Pressure 124/82 119/65 126/76 Pulse Oximetry 100 100 100 09/24/19 11:44 09/24/19 12:19 09/24/19 13:04 Temperature 97.8 F 98.4 F 98.4 F Pulse Rate 100 100 99 Respiratory Rate 18 18 22 H Blood Pressure 123/63 122/10 L 105/64 Pulse Oximetry 100 100 97 09/24/19 13:52 09/24/19 14:00 09/24/19 14:02 Temperature 97.6 F Pulse Rate 110 H 104 H 100 Respiratory Rate 22 H 22 H 20 Blood Pressure 101/54 L 145/94 H 102/58 L Pulse Oximetry 99 96 99 09/24/19 14:04 09/24/19 14:12 09/24/19 14:58 Temperature 95.2 F L 97.4 F L Pulse Rate 93 104 H 110 H Respiratory Rate 20 20 18 Blood Pressure 104/54 L 104/54 L 126/77 Pulse Oximetry 95 98 95 09/24/19 18:05 09/24/19 18:10 09/24/19 18:23 Temperature 97.1 F L 97.3 F L 97.8 F Pulse Rate 101 H 93 94 Respiratory Rate 20 18 20 Blood Pressure 117/62 126/62 125/67 Pulse Oximetry 100 100 98 09/24/19 18:24 09/24/19 19:24 09/24/19 20:24 Temperature 97.8 F 97.6 F 97.3 F L Pulse Rate 101 H 84 95 Respiratory Rate 20 20 20 Blood Pressure 125/67 103/48 L 128/70 Pulse Oximetry 100 92 95 09/24/19 22:00 09/24/19 22:10 09/25/19 03:06 Temperature 97.6 F Pulse Rate 90 Respiratory Rate 20 Blood Pressure 120/67 Pulse Oximetry 100 95 95 09/25/19 06:00 Temperature 97.6 F Pulse Rate 100 Respiratory Rate 20 Blood Pressure 103/65 Pulse Oximetry 98 Intake/Output Intake/Output: Intake & Output 09/22/19 09/23/19 09/24/19 09/25/19 23:59 23:59 23:59 23:59 Intake Total 565 4063 250 Output Total 380 450 700 Balance 185 3613 -450 Meds/Results Medications: Active Medications Generic Name Dose Route Start Last Admin Trade Name Freq PRN Reason Stop Dose Admin Dextrose 12.5 gm 09/23/19 17:42 Dextrose 50% Syringe IV PUSH PRN PRN Hypoglycemia Protocol Dutasteride 0.5 mg 09/24/19 09:00 09/24/19 15:05 Avodart PO 0.5 mg DAILY MALU Administration Folic Acid 0.4 mg 09/24/19 09:00 09/24/19 15:05 Folic Acid PO 0.4 mg DAILY MALU Administration Furosemide 80 mg 09/24/19 09:00 09/24/19 15:05 Lasix Tablet PO 80 mg DAILY MALU Administration Gabapentin 100 mg 09/23/19 17:00 09/25/19 00:01 Neurontin PO Not Given TID MALU Glucagon 1 mg 09/23/19 17:42 Glucagon For Inj IM PRN PRN Hypoglycemia Protocol Glucose 15 gm 09/23/19 17:42 Glutose 15 PO PRN PRN Hypoglycemia Protocol Dextrose 1,000 mls @ 100 mls/hr 09/23/19 17:42 Dextrose 5% 1,000 Ml IVPB PRN PRN Hypoglycemia Protocol Insulin Aspart 2 - 5 units 09/23/19 17:00 09/24/19 18:14 Novolog SUB-Q Not Given TIDWM MALU Protocol Sodium Chloride 10 ml 09/24/19 14:00 09/25/19 06:49 Central Line Flush IV PUSH 10 ml Q8HR MALU Administration Sodium Chloride 10 ml 09/24/19 18:00 09/24/19 18:12 Central Line Flush IV PUSH 10 ml DAILY@1800 MALU Administration Sodium Chloride 20 ml 09/24/19 08:07 Central Line Flush IV PUS
[2019-09-25 09:00] LABS: Glucose Point of Care 160 (65-105)
--- NOTE | 2019-09-25 09:37 | WPDANESPN ---
Anes - Prog Note Post-Op Date/Time: 09/25/19 09:37 Cardiovascular status: normal Respiratory status: normal Airway patency: baseline Mental status: baseline Post-Op hydration status: normal Vital Signs: Last Vital Signs Temp 36.4 C 09/25/19 06:00 Pulse 100 09/25/19 06:00 Resp 20 09/25/19 06:00 BP 103/65 09/25/19 06:00 Pulse Ox 98 09/25/19 06:00 I/O: Intake & Output 09/24/19 09/25/19 09/25/19 23:59 07:59 15:59 Intake Total 566 250 Output Total 450 700 Balance 116 -450 Laboratory Tests 09/24/19 16:03 09/24/19 07:01 09/23/19 09/24/19 09/24/19 10:39 15:02 16:03 Hgb 8.0 L Hct 24.8 L POC Capillary Glucose 215 H Blood Type O Positive Antibody Screen Negative Crossmatch See Detail 09/24/19 09/24/19 09/25/19 18:13 21:54 08:57 Hgb Hct POC Capillary Glucose 179 H 173 H 160 H Blood Type Antibody Screen Crossmatch Post-procedural complaints: none Patient Feedback: Patient satisfied with anesthetic care.
[2019-09-25] MEDS: GABAPENTIN 100 MG CAPSULE PO ×2 (10:03→14:15)
[2019-09-25] MEDS: FOLIC ACID 0.4 MG TABLET PO (10:03)
[2019-09-25] MEDS: DUTASTERIDE 0.5 MG CAPSULE PO (10:04)
[2019-09-25] MEDS: FUROSEMIDE 80 MG TABLET PO (10:04)
[2019-09-25 12:00] LABS: Glucose Point of Care 174 (65-105)
[2019-09-25 13:03] LABS: Hemoglobin 8.5 g/dL (14.0-18.0)
[2019-09-25 13:21] LABS: Blood Urea Nitrogen 28 mg/dL (9-20); Calcium 8.3 mg/dL (8.4-10.2); Carbon Dioxide 33 mmol/L (22-30); Chloride 95 mmol/L (98-107); Estimated CRCL calculation 56 ml/min; Estimated Glomerular Filt Rate 58; Glucose 168 mg/dL (75-110); Magnesium 1.7 mg/dL (1.6-2.3); Phosphorus 2.5 mg/dL (2.5-4.5); Sodium 137 mmol/L (137-145)
[2019-09-25 14:00] VITALS: BP 136/64; PULSE 94; RESP 20; TEMP 36.4; O2SAT 98
[2019-09-25] MEDS: POTASSIUM CHLORIDE 20 MEQ TABLET 40 MEQ PO (14:14)
[2019-09-25 14:28] LABS: Folic Acid > 20.0 ng/mL (2.76->20)
[2019-09-25] MEDS: TOLNAFTATE 1% POWDER 45 GM BTL 1 APPLIC TOPICAL (14:59)
[2019-09-25] MEDS: MAGNESIUM OXIDE 400 MG TABLET PO (14:59)
--- NOTE | 2019-09-25 15:17 | PM.DS ---
DS: Admitting Diagnosis Admitting Diagnosis Admitting Diagnosis: Gastrointestinal hemorrhage, unspecified DS: Discharge Diagnosis Discharge Diagnosis (1) Diverticular hemorrhage: Code(s): K57.31 - Diverticulosis of large intestine without perforation or abscess with bleeding Status: Acute Assessment and Plan: ----- GI bleed likely due to diverticular bleed as noted on colonoscopy. He received 4 units of blood throughout his hospitalization. Patient had very mild smears of blood after his colonoscopy but also had hemorrhoids on exam. the patient's hemoglobin Was stable at 8.5 today and he no longer has any dizziness and lightheadedness. He worked with physical therapy and felt stronger and felt safe to go home. he is to have a lab drawn after discharge to ensure his hemoglobin remained stable. This result will be sent to Dr. De Luna (2) GI bleeding: Qualifiers: GI bleed type/associated pathology: unspecified gastrointestinal hemorrhage type Qualified Code(s): K92.2 - Gastrointestinal hemorrhage, unspecified Code(s): K92.2 - Gastrointestinal hemorrhage, unspecified Status: Acute Assessment and Plan: ----- see above (3) HTN (hypertension): Code(s): I10 - Essential (primary) hypertension Status: Acute Assessment and Plan: ----- blood pressure 136/64. Continue medications (4) Hypercholesterolemia: Code(s): E78.00 - Pure hypercholesterolemia, unspecified Status: Acute Assessment and Plan: ----- Chronic, statin held. (5) CHF (congestive heart failure): Code(s): I50.9 - Heart failure, unspecified Status: Acute Assessment and Plan: ----- Seems a bit fluid overloaded with the says this is better than his baseline. continue home medications (6) MADAN (obstructive sleep apnea): Code(s): G47.33 - Obstructive sleep apnea (adult) (pediatric) Status: Acute Assessment and Plan: ----- Continue with CPAP in the room (7) BPH (benign prostatic hyperplasia): Code(s): N40.0 - Benign prostatic hyperplasia without lower urinary tract symptoms Status: Acute Assessment and Plan: ------ Continue with tamsulosin and dutasteride . (8) Acute blood loss anemia: Code(s): D62 - Acute posthemorrhagic anemia Status: Acute DS: Summary Hospital Course Reason for hospitalization: GI bleed Hospital Course: patient is an 83-year-old male who presented emergency room for GI bleeding that started the day prior. Previously, he was admitted to [facility] for shaking episodes and was given 3 aspirins in addition to his Plavix prior to discharge from [place]. He believes this is the cause of his bright red rectal bleeding. vital stable in the ER. Original hemoglobin on admission was 7.7 and the patient felt dizzy and weak. he was admitted to the hospitalist service and transfused 2 units. overnight he had multiple bloody bowel movements and 2 more units were given. He underwent a colonoscopy which showed diverticula which GI thought was the cause of the bleed. He also had hemorrhoids noted on exam. EGD was negative For bleeding source but did show a web. factors colonoscopy, the patient had very mild blood with a bowel movement which was likely from the hemorrhoids. He felt stronger and worked with physical therapy and felt safe going home. He also was low in potassium which was likely due to colonoscopy prep and this was replaced. The patient was stable the day of discharge. He is to have a blood draw to check his hemoglobin and BNP on Sunday. I spoke with Dr. Montes De Oca office and they plan to follow-up with this. He has an appointment for the . Patient was educated about the worrisome signs and symptoms instructed to come back to emergency room if any additional bleeding occurs. Patient was discharged in stable condition. Status at Discharge
== END 2019-09-25 17:30 | disposition home or self-care (01) | DRG 377 ==
LOC: ANHED 10:25 → ANH3MEDSUR 12:41
PROVIDERS: Internal Medicine Gastroenterology; Nurse Practitioner; Physician Assistant; Admitting Provider Family Medicine; Emergency Provider Emergency Medicine; PCP Internal Medicine; Visit Provider Family Medicine
PROC: 0DJ08ZZ Inspection of Upper Intestinal Tract, Via Natural or Artificial Opening Endoscopic (ICD-10-PCS; CPT 43235; principal; 2019-09-24 11:30)
DX: K57.31 Diverticulosis of large intestine without perforation or abscess with bleeding (principal); Q39.4 Esophageal web; D62 Acute posthemorrhagic anemia; Z68.41 Body mass index [BMI] 40.0-44.9, adult; K64.8 Other hemorrhoids; I11.0 Hypertensive heart disease with heart failure; I50.9 Heart failure, unspecified; N40.0 Benign prostatic hyperplasia without lower urinary tract symptoms; E78.00 Pure hypercholesterolemia, unspecified; I25.10 Atherosclerotic heart disease of native coronary artery without angina pectoris; K21.9 Gastro-esophageal reflux disease without esophagitis; I25.2 Old myocardial infarction; G47.33 Obstructive sleep apnea (adult) (pediatric); E66.9 Obesity, unspecified; M19.90 Unspecified osteoarthritis, unspecified site; Z79.01 Long term (current) use of anticoagulants; Z79.82 Long term (current) use of aspirin; Z87.891 Personal history of nicotine dependence; Z95.1 Presence of aortocoronary bypass graft; Z95.810 Presence of automatic (implantable) cardiac defibrillator
CPT/HCPCS: 36415; 36430; 73130; 80048; 80053; 82607; 82746; 83735; 84100; 84443; 85014; 85018; 85025; 85610; 85730; 86140; 86850; 86900; 86901; 86920; 93005; 96374; 96376; 97161; 97165; 99285; A9270; C1751; C9113; G0378; J1815; J2704; J3480; J7060; J7120; P9016